=== PATIENT | male | born 1965 | race Caucasian/White ===

== ENCOUNTER → 2018-04-06 00:06 | Outpatient (CLI) | payer BC, SELFPAY ==
[2018-04-06 11:05] LABS: Anion Gap 11.1 mmol/L (3-11); BUN 20 mg/dL (7-18); CO2 27.9 mmol/L (21.0-32.0); CREATININE 1.02 mg/dL (0.70-1.30); Calcium 9.1 mg/dL (8.5-10.1); Chloride 103 mmol/L (98-107); Cholesterol 165 mg/dL (50-200); Glucose 144 mg/dL (70-100); HDL Cholesterol 57 mg/dL (40-60); LDL CHOLESTEROL 99 mg/dL (<100); Potassium 4.4 mmol/L (3.5-5.1); Sodium 142 mmol/L (136-145); Triglyceride 52 mg/dL (30-150)
[2018-04-07 07:21] LABS: COMMENT (LAB VIEW ONLY) 187.69 mg/dL
[2018-04-07 07:29] LABS: Hemoglobin A1C 8.6 % (4.5-6.2)
[2018-04-08 12:14] LABS: HIV-1/2 Ag & Ab Screen Negative (NEGAT)
[2018-04-08 13:11] LABS: Hepatitis C Ab w Rflx HCV PCR Negative (NEGAT)
== END ==
PROVIDERS: PCP Nurse Practitioner Family; Visit Provider Nurse Practitioner Family
DX: E11.65 Type 2 diabetes mellitus with hyperglycemia (principal); E78.5 Hyperlipidemia, unspecified; Z11.4 Encounter for screening for human immunodeficiency virus [HIV]; E11.9 Type 2 diabetes mellitus without complications; Z11.59 Encounter for screening for other viral diseases
CPT/HCPCS: 36415; 80048; 80061; 83721; 86803; 87389; 82043; 82570; 83036

== ENCOUNTER 2019-06-08 13:45 | Outpatient (REF) | payer BC, SELFPAY ==
[2019-06-08 15:01] LABS: COMMENT (LAB VIEW ONLY) 155.11 mg/dL; Microalb ug/mg Crea 10.8 ug/mg Cr
== END 2019-06-08 14:05 ==
LOC: LBN 13:45
PROVIDERS: PCP Nurse Practitioner Family; Visit Provider Nurse Practitioner Family
DX: E11.9 Type 2 diabetes mellitus without complications (principal)
CPT/HCPCS: 82043; 82570

== ENCOUNTER 2019-07-10 07:08 | Outpatient (CLI) | payer BC, SELFPAY ==
[2019-07-10 08:21] LABS: Anion Gap 11.1 mmol/L (3-11); BUN 16 mg/dL (7-18); CO2 23.9 mmol/L (21.0-32.0); CREATININE 0.93 mg/dL (0.70-1.30); Calcium 9.2 mg/dL (8.5-10.1); Calculated LDL 68 mg/dL; Chloride 105 mmol/L (98-107); Cholesterol 131 mg/dL (50-200); Glucose 147 mg/dL (70-100); HDL Cholesterol 54 mg/dL (40-60); Potassium 4.6 mmol/L (3.5-5.1); Sodium 140 mmol/L (136-145); Triglyceride 45 mg/dL (30-150)
== END 2019-07-10 07:28 ==
PROVIDERS: PCP Nurse Practitioner Family; Visit Provider Nurse Practitioner Family
DX: E78.5 Hyperlipidemia, unspecified (principal); E11.65 Type 2 diabetes mellitus with hyperglycemia
CPT/HCPCS: 36415; 80048; 80061

== ENCOUNTER 2019-09-06 21:45 | Emergency (ER) | payer BC, SELFPAY ==
[2019-09-06 21:48] VITALS: BP 143/79; PULSE 87; RESP 20; TEMP 36.4; O2SAT 96
--- NOTE | 2019-09-06 21:54 | ED.GENADUL_ITS ---
Discharge Plan Disposition Patient Disposition: HOME Condition: Stable Discharge Details Chief Complaint: RespSymp Clinical Impression: Sinusitis Primary Care Provider: Tori Good ED Provider: Diomedes Rocha Home Meds and New Rx's Prescriptions: New benzonatate [Tessalon Perles] 100 mg capsule 200 mg PO TID Qty: 20 RF: 0 doxycycline hyclate 100 mg tablet 100 mg PO BID Qty: 14 RF: 0 Continued atorvastatin 10 mg tablet 10 mg PO DAILY RF: 0 (DME) pen needle, diabetic [Pen Needle] 31 gauge x 5/16 needle See Dose Instructions .ROUTE .MEDSUPPLY Qty: 100 RF: 3 metformin 1,000 mg tablet 1,000 mg PO BID Qty: 180 RF: 3 Januvia 100 mg tablet 100 mg PO DAILY Qty: 90 RF: 3 glimepiride 4 mg tablet 8 mg PO DAILY Qty: 180 RF: 3 Victoza 3-Aaron 0.6 mg/0.1 mL (18 mg/3 mL) pen injector 1.8 mg subcut DAILY Qty: 9 RF: 3 (DME) blood-glucose meter [FreeStyle Lite Meter] 1 EACH kit 1 ea Miscellaneous DAILY Qty: 1 RF: 0 (DME) lancets [FreeStyle Lancets] 1 EACH misc 1 ea Miscellaneous DAILY Qty: 100 RF: 3 (DME) FreeStyle Lite Strips 1 EACH strip 1 ea Miscellaneous DAILY Qty: 100 RF: 3 aspirin [Aspir-81] 81 MG tablet,delayed release (DR/EC) 81 mg PO DAILY RF: 0 Varicella-Zoster Ge/As01b/Pf [Shingrix Vial Kit] 50 MCG INJ 50 mcg IM ONCE Qty: 1 RF: 1 Discharge Instructions Instructions: Sinusitis (ED) Additional Instructions: if you are not better within a week see your primary care provider if you feel more ill, have high fevers or worsening shortness of breath return to the emergency department for evaluation Medical Decision Making 54 yo male with hx of DM comes in with over a week of cough intermittently productive of clear phlegm and sinus pressure. Denies fevers, chills, recent travel, smoking or drug use. He is speaking in full sentences on exam and has clear lung sounds throughout, no jvd or peripheral edema, does have clear rhinorrhea. LIkely viral uri vs sinusitis, will obtain xray to eval for infiltrate. No fevers and appears well so doubt sepsis. No chest pain or pressure, no leg swelling or calf pain and no hypoxia or tachycardia so doubt entities such as acs, chf or Pe and symptoms sound more infecitous in etiology. xray negative on my read, remains stable. Given length of time will start abx for possible bacterial sinusitis and early pna. ADvised f/u with pcp and return precautions given Differential Diagnosis Differential Diagnosis: sinusitis, uri, pna Imaging Data Radiologic Study: Attestation: I personally reviewed and interpreted this imaging study as follows: Imaging: X-Ray My impression: no acute findings HPI General Mode of arrival: ambulatory . Date/Time Provider Initiated Documentation: 09/06/19 21:45 . Limitations to Documentation: no limitations . Information obtained by: patient . History of Present Illness 54 year old M presents to the emergency department with the chief complaint of cough, described as moderate, and it has been constant. No relieving factors improve symptom(s), No exacerbating factors reported . Related Data Home Medications Medication Instructions Recorded Confirmed blood-glucose meter [FreeStyle #1 kit 09/15/14 09/06/19 Lite Meter] lancets [FreeStyle Lancets] #100 ea 09/15/14 09/06/19 FreeStyle Lite Strips #100 strip 04/06/16 09/06/19 aspirin [Aspir-81] 81 mg PO DAILY tab-cap 01/06/18 09/06/19 atorvastatin 10 mg tablet 10 mg PO DAILY 12/04/18 09/06/19 metformin 1,000 mg tablet 1,000 mg PO BID #180 tab-cap 03/06/19 09/06/19 pen needle, diabetic 31 gauge x #100 each 03/06/19 09/06/1901/15 sitagliptin 100 mg tablet 100 mg PO DAILY #90 tab-cap 03/06/19 09/06/19 glimepiride 4 mg tablet 8 mg PO DAILY #180 tab-cap 06/08/19 09/06/19 liraglutide 0.6 mg/0.1 mL (18 mg/3 1.8 mg SUBCUT DAILY #9 ml 06/08/19 09/06/19 mL) subcutaneous pen injector benzonatate [Tessalon Perlkee] 200 mg PO TID #20 cap 09/06/19 doxycycline hyclate 100 mg PO BID #14 tab 09/06/19 Previous Rx's Medication Instructions Recorded metformin 1,000 mg tablet 1,000 mg PO BID #180 tab-cap 03/06/19 pen needle, diabetic 31 gauge x #100 each 03/06/19 5/ sitagliptin 100 mg tablet 100 mg PO DAILY #90 tab-cap 03/06/19 glimepiride 4 mg tablet 8 mg PO DAILY #180 tab-cap 06/08/19 liraglutide 0.6 mg/0.1 mL (18 mg/3 1.8 mg SUBCUT DAILY #9 ml 06/08/19 mL) subcutaneous pen injector benzonatate [Tessalon Perles] 200 mg PO TID #20 cap 09/06/19 doxycycline hyclate 100 mg PO BID #14 tab 09/06/19 Allergies Allergy/AdvReac Type Severity Reaction Status Date / Time Penicillins Allergy Unknown UNKNOWN Verified 09/06/19 21:49 General Stated Complaint: RespSymp HEATHER: 4 Review of Systems All systems reviewed & are unremarkable except as noted in HPI and below Constitutional Constitutional: Denies chills, Denies fever(s) and Denies weakness Eyes Eyes: Denies loss of vision Cardiovascular Cardiovascular: Denies chest pain and Denies dyspnea Respiratory Respiratory: Denies dyspnea Gastrointestinal Gastrointestinal: Denies abdominal pain, Denies nausea and Denies vomiting Musculoskeletal Musculoskeletal: Denies joint swelling Neurologic Neurologic: Denies loss of vision and Denies weakness [facility] Social History Smoking/Tobacco Use Status: Never Alcohol Intake: current Alcohol Intake frequency: holidays/special occasions only Drug use: Never Substance use type: does not use Caregiver/Support person: No Household members: spouse Housing: house Number of Children: 3 Communication Needs: None current occupation: self employed Current gender identity: male What is your relationship status?: Panel score (0-1 are the most socially isolated patients): 1 What type of physical activity do you participate in: walking Frequency: daily Do you feel safe at home: Yes Do you feel safe in your relationship?: Yes Exam Const General: no acute distress Orientation: alert HENMT Head: normal to inspection Ears: external ears normal General nose exam: external nose normal Mouth: moist mucous membranes Eyes General: appearance normal, both eyes and all related structures Neck Neck: normal visual inspection Resp Effort & Inspection: normal respiratory effort and able to speak in complete sentences Cardio Rate: regular rate Skin General skin exam: no rashes or lesions noted Neuro General: alert and oriented x3 Extrem General: normal to inspection Psych Mental Status: mental status grossly normal Course Vital Signs Vital signs: Vital Signs Temperature 36.4 C L 09/06/19 21:48 Pulse 87 09/06/19 21:48 Respiratory Rate 09/06/19 21:48 Blood Pressure 143/79 H 09/06/19 21:48 Pulse Oximetry 96 09/06/19 21:48 Temperature 36.4 C L 09/06/19 21:48 Temperature Source Temporal Artery Scan 09/06/19 21:48 Pulse 87 09/06/19 21:48 Respiratory Rate 09/06/19 21:48 Respiratory Effort Non-Labored 09/06/19 21:50 Respiratory Depth Normal 09/06/19 21:50 Blood Pressure 143/79 H 09/06/19 21:48 Blood Pressure Position Sitting 09/06/19 21:48 Pulse Oximetry 96 09/06/19 21:48 Oxygen Delivery Method Room Air 09/06/19 21:48 Oxygen Flow Rate 0 09/06/19 21:48 Pain Level 8 09/06/19 21:48
--- NOTE | 2019-09-06 22:02 | DI.RAD_ITS ---
EXAM: XR CHEST 2V PA LATERAL INDICATION: cough. COMPARISON: No exams were available for comparison TECHNIQUE: 2D digital imaging was performed. FINDINGS: Heart size is normal. The lungs are clear. No infiltrate or effusion is seen. IMPRESSION: Negative chest x-ray.
[2019-09-06] MEDS: Doxycycline Hyclate 100 MG CAP PO (22:30)
[2019-09-06] MEDS: Benzonatate 200 MG CAP PO (22:30)
--- NOTE | 2019-09-06 22:39 | DI.VRAD_ITS ---
PROCEDURE INFORMATION: Exam: XR Chest, 2 Views Exam date and time: 09/06/2019 10:02 PM Age: 54 years old Clinical indication: Patient HX: Cold symptoms, cough for 3 days TECHNIQUE: Imaging protocol: XR of the chest Views: 2 views. COMPARISON: No relevant prior studies available. FINDINGS: Lungs: Unremarkable. No consolidation. Pleural space: Unremarkable. No pleural effusion. No pneumothorax. Heart/Mediastinum: Unremarkable. No cardiomegaly. Bones/joints: Unremarkable. IMPRESSION: No acute findings. Dictated and Authenticated by: Reuben Beasley MD. Ordering:ROBERT Hercules MD
[2019-09-07 06:10] VITALS: BP 143/79; PULSE 87; RESP 20; TEMP 36.4; O2SAT 96
== END 2019-09-06 22:35 | disposition home or self-care (01) ==
PROVIDERS: Emergency Provider Emergency Medicine; PCP Nurse Practitioner Family
DX: J01.90 Acute sinusitis, unspecified (principal); E11.9 Type 2 diabetes mellitus without complications; Z79.84 Long term (current) use of oral hypoglycemic drugs
CPT/HCPCS: 99283; 71046

== ENCOUNTER 2020-09-30 10:31 | Outpatient (REF) | payer BC, SELFPAY ==
[2020-09-30 14:09] LABS: COMMENT (LAB VIEW ONLY) 124.59 mg/dL
== END 2020-09-30 10:51 ==
LOC: LBN 10:31
PROVIDERS: PCP Nurse Practitioner Family; Visit Provider Nurse Practitioner Family
DX: E11.9 Type 2 diabetes mellitus without complications (principal)
CPT/HCPCS: 82043; 82570

== ENCOUNTER 2020-10-06 03:54 | Outpatient (CLI) | payer BC, SELFPAY ==
[2020-10-06 08:12] LABS: ALT 47 U/L (16-63); AST 12 U/L (15-37); Albumin 4.1 g/dL (3.4-5.0); Alkaline Phosphatase 72 U/L (46-116); Anion Gap 10.5 mmol/L (3-11); BUN 22 mg/dL (7-18); Bilirubin, Total 0.6 mg/dL (0.2-1.0); CO2 25.5 mmol/L (21.0-32.0); CREATININE 1.1 mg/dL (0.70-1.30); Calcium 9.5 mg/dL (8.5-10.1); Calculated LDL 80 mg/dL (<100); Chloride 103 mmol/L (98-107); Cholesterol 142 mg/dL (<200); Glucose 179 mg/dL (74-106); HDL Cholesterol 52 mg/dL (40-60); Potassium 4.9 mmol/L (3.5-5.1); Sodium 139 mmol/L (136-145); Total Protein 7.9 g/dL (6.4-8.2); Triglyceride 53 mg/dL (<150)
== END 2020-10-06 03:55 | disposition home or self-care (01) ==
LOC: LBO 03:54
PROVIDERS: PCP Nurse Practitioner Family; Visit Provider Nurse Practitioner Family
DX: E11.65 Type 2 diabetes mellitus with hyperglycemia (principal)
CPT/HCPCS: 36415; 80053; 80061

== ENCOUNTER 2021-10-13 09:51 | Outpatient (REF) | payer BC, SELFPAY ==
[2021-10-13 17:15] LABS: Microalb ug/mg Crea 36.7 ug/mg Cr
== END 2021-10-13 09:52 | disposition home or self-care (01) ==
LOC: LBN 09:51
PROVIDERS: PCP Nurse Practitioner Family; Visit Provider Nurse Practitioner Family
DX: E11.9 Type 2 diabetes mellitus without complications (principal); Z79.4 Long term (current) use of insulin
CPT/HCPCS: 82043; 82570

== ENCOUNTER 2021-11-28 02:54 | Outpatient (CLI) | payer BC, SELFPAY ==
[2021-11-28 08:55] LABS: ALT 60 U/L (16-63); AST 14 U/L (15-37); Albumin 4.5 g/dL (3.4-5.0); Alkaline Phosphatase 79 U/L (46-116); Anion Gap 10.4 mmol/L (3-11); BUN 14 mg/dL (7-18); Bilirubin, Total 0.6 mg/dL (0.2-1.0); CO2 27.6 mmol/L (21.0-32.0); CREATININE 0.9 mg/dL (0.70-1.30); Calcium 9.5 mg/dL (8.5-10.1); Calculated LDL 99 mg/dL (<100); Chloride 104 mmol/L (98-107); Cholesterol 162 mg/dL (<200); Glucose 166 mg/dL (74-106); HDL Cholesterol 52 mg/dL (40-60); Potassium 4.7 mmol/L (3.5-5.1); Sodium 142 mmol/L (136-145); Total Protein 8.5 g/dL (6.4-8.2); Triglyceride 55 mg/dL (<150)
== END 2021-11-28 02:55 | disposition home or self-care (01) ==
LOC: LBO 02:54
PROVIDERS: PCP Nurse Practitioner Family; Visit Provider Nurse Practitioner Family
DX: E78.5 Hyperlipidemia, unspecified (principal); E11.65 Type 2 diabetes mellitus with hyperglycemia; Z79.4 Long term (current) use of insulin
CPT/HCPCS: 36415; 80053; 80061; 85014; 85018

== ENCOUNTER 2022-10-18 15:46 | Outpatient (REF) | payer BC, SELFPAY ==
[2022-10-18 17:07] LABS: Microalb ug/mg Crea 29.5 ug/mg Cr
== END 2022-10-18 15:47 | disposition home or self-care (01) ==
LOC: LBN 15:46
PROVIDERS: PCP Nurse Practitioner Family; Visit Provider Nurse Practitioner Family
DX: E11.9 Type 2 diabetes mellitus without complications (principal); Z79.4 Long term (current) use of insulin
CPT/HCPCS: 82043; 82570

== ENCOUNTER 2023-01-22 02:49 | Outpatient (CLI) | payer BC, SELFPAY ==
[2023-01-22 12:42] LABS: Hemoglobin A1C 7.8 % (<5.7)
[2023-01-22 12:48] LABS: Abs Immature Grans 0.04 10^3/uL (0.0-0.06); HCT 47.5 % (40.0-50.0); HGB 15.1 g/dL (13.5-17.5); MCH 29.8 pg (27.0-33.0); MCHC 31.8 % (32.0-36.0); MCV 94 fL (80-95); MPV 9.2 fL (8.0-11.0); RBC 5.07 10^6/uL (4.36-5.78); RDW 13.2 % (11.8-14.1); RDW-SD 44.9 fL; WBC 11.43 10^3/uL (4.4-10.8)
[2023-01-22 12:51] LABS: ALT 77 U/L (16-63); AST 19 U/L (15-37); Albumin 4.1 g/dL (3.4-5.0); Alkaline Phosphatase 69 U/L (46-116); Anion Gap 6.1 mmol/L (3-11); BUN 16 mg/dL (7-18); Bilirubin, Total 0.8 mg/dL (0.2-1.0); CO2 27.9 mmol/L (21.0-32.0); Calcium 9.4 mg/dL (8.5-10.1); Calculated LDL 86 mg/dL (<100); Chloride 104 mmol/L (98-107); Cholesterol 150 mg/dL (<200); Estimated GFR 87.24 (mL/min/1.73m2); Glucose 206 mg/dL (74-106); HDL Cholesterol 56 mg/dL (40-60); Potassium 4.6 mmol/L (3.5-5.1); Sodium 138 mmol/L (136-145); Total Protein 8.3 g/dL (6.4-8.2); Triglyceride 44 mg/dL (<150)
[2023-01-22 13:34] LABS: Absolute Basophil Count 0.34 10^3/uL (0.0-0.2); Absolute Eosinophil Count 0.46 10^3/uL (0.0-0.7); Absolute Monocyte Count 0.57 10^3/uL (0.1-0.8); Absolute Neutrophil Count 6.06 10^3/uL (1.2-6.7); Diff Comment Manual Differential
[2023-01-22 13:35] LABS: Platelet Count 367 10^3/uL (130-400)
[2023-01-22 13:36] LABS: RBC Morphology Normal
== END 2023-01-22 02:50 | disposition home or self-care (01) ==
LOC: LOS 02:49
PROVIDERS: PCP Nurse Practitioner Family; Visit Provider Nurse Practitioner Family
DX: Z51.81 Encounter for therapeutic drug level monitoring (principal); E11.9 Type 2 diabetes mellitus without complications; Z79.4 Long term (current) use of insulin
CPT/HCPCS: 36415; 80053; 80061; 83036; 85025

== ENCOUNTER 2023-03-31 11:55 | Emergency (ER) | payer BC, SELFPAY ==
[2023-03-31 12:17] VITALS: BP 140/81; PULSE 99; RESP 18; TEMP 36.7; O2SAT 98
--- NOTE | 2023-03-31 13:03 | DI.RAD_ITS ---
Exam(s) XR SHOULDER RT COMPLETE 2+V EXAM: XR SHOULDER RT COMPLETE 2+V CLINICAL HISTORY: right shoulder pain. TECHNIQUE: 2D digital imaging was performed. COMPARISON: No exams were available for comparison FINDINGS: Five views. No evidence of acute fracture or dislocation or abnormal soft tissue calcifications. Subacromial spa ce unremarkable. Glenohumeral joint exhibit subtle linear lucency which is probably gas. AC joint u nremarkable. Coracoid process appears intact. IMPRESSION: Subtle linear lucency in the glenoid fossa. Possibly just representing some gas. If there is high s uspicion for fracture here than I would recommend follow-up CT scan. DATA REPOSITORY: RADIATION DOSE DELIVERED:
--- NOTE | 2023-03-31 13:04 | DI.VRAD_ITS ---
PROCEDURE INFORMATION: Exam: XR Right Shoulder Exam date and time: 03/31/2023 12:57 PM Age: 58 years old Clinical indication: Shoulder; Right; Patient HX: Pain - no trauma TECHNIQUE: Imaging protocol: Radiologic exam of the right shoulder. Views: 2 or more views. COMPARISON: CR XR CHEST 2V PA LATERAL 09/06/2019 10:00 PM FINDINGS: Bones/joints: Normal. Soft tissues: Normal. IMPRESSION: No acute findings. Dictated and Authenticated by: Edmond Zavala MD. Ordering:JODI Romero MD
--- NOTE | 2023-03-31 14:52 | W.ED.GENAD ---
Discharge Plan Disposition Patient Disposition: Home Discharge Details Clinical Impression: Sprain of right shoulder Primary Care Provider: Tori Good ED Provider: Jon Patel Home Meds and New Rx's Prescriptions: New diclofenac potassium 50 mg tablet 50 mg PO TID PRN (Reason: pain) Qty: 15 0RF Continued atorvastatin 10 mg tablet 10 mg PO DAILY Qty: 90 3RF Ozempic 2 mg/dose (8 mg/3 mL) pen injector 2 mg subcut QWEEK Qty: 9 3RF glimepiride 4 mg tablet 4 mg PO BID Qty: 180 3RF Rx Instructions: Take 4 mg twice daily, one dose with breakfast and the other with dinner insulin degludec [Tresiba FlexTouch U-100] 100 unit/mL (3 mL) insulin pen 25 unit SC HS Qty: 5 3RF (DME) pen needle, diabetic [Pen Needle] 31 gauge x 5/16 needle See Dose Instructions .ROUTE .MEDSUPPLY Qty: 100 3RF Dose Instruction: To administer insulin 5 times daily. Dispense covered brand. Rx Instructions: To administer Ozempic once weekly. Dispense covered brand. (DME) blood-glucose meter [FreeStyle Lite Meter] 1 EACH kit 1 ea Miscellaneous DAILY Qty: 1 Rx Instructions: 250.00 to maintain A1C less than 7.0 (DME) lancets [FreeStyle Lancets] 1 EACH misc 1 ea Miscellaneous DAILY Qty: 100 Rx Instructions: 250.00 to maintain A1C less than 7.0 (DME) FreeStyle Lite Strips 1 EACH strip 1 ea Miscellaneous DAILY Qty: 100 Rx Instructions: Dx: E11.9 to maintain HbA1C less than 7.0% aspirin [Aspir-81] 81 MG tablet,delayed release (DR/EC) 81 mg PO DAILY metformin 1,000 mg tablet See Rx Instructions PO BID MDD 2500 mg Qty: 225 3RF Rx Instructions: 1000 mg AM and 1500 mg PM PO twice a day; Discharge Instructions Instructions: Shoulder Sprain (ED) Additional Instructions: You may use the provided sling as needed for pain and discomfort. Please perform gentle range of motion activities daily and reduce any heavy lifting or pulling type motions and let the shoulder rest. A referral has been placed for you to follow-up with an orthopedist take medication as prescribed until following up with them. If you have any new or significant worsening of symptoms feel free to return the emergency department for reassessment Referrals: [facility] [Provider Group] (Please call the office in 2 days for arrangement of follow-up appointment) Discharge Data Discharge Date/Time-TO BE ENTERED AT DEPARTURE: 03/31/23 15:12 Medical Decision Making Patient presenting to the emergency department for chief complaint of right shoulder pain. Patient reports that this started 3 years ago when he was throwing some straps on his trailer. It took approximately 1 year for the pain to be fully gone. He was doing good with his shoulder up until the spring when he did the same motion and reinjured it. It had been doing okay but then 1 month ago started having significant pain and discomfort especially with movement. Patient has intermittently taken Aleve but seen little to no relief. Patient denies blunt injury or trauma, fever chills, chest pain shortness of breath or other symptoms physical exam shows significant tenderness with abduction and rotation type movements and has limited range of motion. No crepitus noted, patient does have anterior and posterior tenderness to the proximal humerus distal to pain and discomfort exam is unremarkable. Radiological imaging was performed prior to my assessing the patient and no acute findings are noted. I am concerned for ligamentous type injury and possible need of MRI imaging given nature of pain. Will refer patient to orthopedist for reassessment after prescription of diclofenac was given and sling for comfort. After discussion of diagnosis and plan of care patient has no further needs, questions, or concerns and states clear understanding to return to the emergency department for any worsening symptoms. This documentation was generated using [employer] dictation system, please disregard any oddities of phrase or misspellings. Imaging Data Radiologic Study: Imaging: X-Ray Radiologist's impression: Exam(s) PROCEDURE INFORMATION: Exam: XR Right Shoulder Exam date and time: 03/31/2023 12:57 PM Age: 58 years old Clinical indication: Shoulder; Right; Patient HX: Pain - no trauma TECHNIQUE: Imaging protocol: Radiologic exam of the right shoulder. Views: 2 or more views. COMPARISON: CR XR CHEST 2V PA LATERAL 09/06/2019 10:00 PM FINDINGS: Bones/joints: Normal. Soft tissues: Normal. IMPRESSION: No acute findings. HPI General Mode of arrival: ambulatory. Date/Time Provider Initiated Documentation: 03/31/23 12:08. Limitations to Documentation: no limitations. Information obtained by: patient and RN notes reviewed. History of Present Illness 58 year old M presents to the emergency department with the chief complaint of Right shoulder injury, described as moderate, Quality is described as sharp, and is localized to the right and upper extremity. Patient started experiencing this month(s) (4) and it has been intermittent. Rest improves symptom(s), Movement worsens symptoms . Patient notes no other symptoms.. Patient did receive the following treatments prior to arrival, NSAID Related Data Home Medications Medication Instructions Recorded Confirmed blood-glucose meter (FreeStyle ##1 09/15/14 01/25/23 Lite Meter kit) lancets 28 gauge (FreeStyle #100 ea 09/15/14 01/25/23 Lancets) blood sugar diagnostic (FreeStyle #100 strips 04/06/16 01/25/23 Lite Strips) aspirin 81 mg tablet,delayed 81 mg PO DAILY 01/06/18 03/31/23 release (Aspir-) atorvastatin 10 mg tablet 10 mg PO DAILY #90 tab-caps 02/09/22 03/31/23 metformin 1,000 mg tablet See Rx Instructions PO BID #225 04/13/22 03/31/23 tab-caps glimepiride 4 mg tablet 4 mg PO BID #180 tab-caps 06/22/22 03/31/23 insulin degludec 100 unit/mL (3 25 unit (0.25 mL) subcut HS Dx: 06/22/22 03/31/23 mL) subcutaneous pen (Tresiba E11.9 to maintain HbA1c less than FlexTouch U-100 insulin) 7% #5 SYRGS pen needle, diabetic 31 gauge x #100 ea 07/13/22 01/25/23 5/16 (Pen Needle) semaglutide 2 mg/dose (8 mg/3 mL) 2 mg (0.75 mL) subcut QWEEK #9 mL 01/25/23 03/31/23 subcutaneous pen injector (Ozempic) diclofenac potassium 50 mg tablet 50 mg PO TID PRN pain #15 tabs 03/31/23 Previous Rx's Medication Instructions Recorded atorvastatin 10 mg tablet 10 mg PO DAILY #90 tab-caps 02/09/22 metformin 1,000 mg tablet See Rx Instructions PO BID #225 04/13/22 tab-caps glimepiride 4 mg tablet 4 mg PO BID #180 tab-caps 06/22/22 insulin degludec 100 unit/mL (3 25 unit (0.25 mL) subcut HS Dx: 06/22/22 mL) subcutaneous pen (Tresiba E11.9 to maintain HbA1c less than FlexTouch U-100 insulin) 7% #5 SYRGS pen needle, diabetic 31 gauge x #100 ea 07/13/2201/15 (Pen Needle) semaglutide 2 mg/dose (8 mg/3 mL) 2 mg (0.75 mL) subcut QWEEK #9 mL 01/25/23 subcutaneous pen injector (Ozempic) diclofenac potassium 50 mg tablet 50 mg PO TID PRN pain #15 tabs 03/31/23 Allergies Allergy/AdvReac Type Severity Reaction Status Date / Time Penicillins Allergy Unknown UNKNOWN Verified 03/31/23 12:21 sitagliptin AdvReac Itching Verified 03/31/23 12:21 General Stated Complaint: Orthopedic HEATHER: 4 Review of Systems Narrative: 6 systems reviewed and unremarkable except what is marked below. Musculoskeletal Musculoskeletal: Reports as per HPI, Reports arthralgias, Reports limited range of motion, Denies numbness and Denies tingling Neurologic Neurologic: Denies numbness and Denies tingling PFSH All Active Problems Sprain of right shoulder (Acute) Elevated LFTs (Acute) Age-related nuclear cataract, bilateral (Acute) Microalbuminuria due to type 2 diabetes mellitus (Acute) Obesity (Chronic) Type 2 diabetes mellitus, with long-term current use of insulin (Acute) Learning disability (Acute) Candidate for statin therapy due to risk of future cardiovascular event (Chronic 01/31/16) Medical History Color vision deficiency (1964) Surgical History History of appendectomy Family History Mother Diabetes Father Diabetes Heart disease Grandmother Diabetes Social History Smoking/Tobacco Use Status: Never Smoking risk assessment performed?: Yes Alcohol Intake: current Alcohol Intake frequency: holidays/special occasions only Drug use: Never Substance use type: does not use Adopted: No Caregiver/Support person: No Foster care: No Household members: spouse Housing: house Number of Children: 3 number of grandchildren: 6 Communication Needs: None Education Level: middle school Do you need help understanding health information?: Rarely current occupation: self employed - logging Pets and animals: No Sexually active: Yes Do you think of yourself as: straight/heterosexual Current gender identity: male What is your relationship status?: How often do you talk on the phone with friends or family?: three or more times per week How often do you get together with friends or relatives?: twice per week Do you belong to any clubs or organized social groups?: no Panel score (0-1 are the most socially isolated patients): 2 What type of physical activity do you participate in: walking and other Details: Active with work Duration: < 15 minutes/day Frequency: 5-6 times per week Orquidea/Cheondoism: Sikh Seatbelt use: sometimes Helmet use: Yes Drive intox or ride w/intox escort vehicle driver: No Do you feel safe at home: Yes Do you feel safe in your relationship?: Yes Exam Const General: cooperative, no acute distress and not ill appearing Orientation: alert, awake and oriented x3 HENMT Mouth: moist mucous membranes Resp Effort & Inspection: normal respiratory effort, able to speak in complete sentences and no respiratory distress Cardio Rate: regular rate Rhythm: regular rhythm Pulses: normal peripheral pulses Skin General skin exam: no rashes or lesions noted Neuro General: patient alert, patient awake, patient oriented x3, moves all extremities and no focal motor deficits Sensory Exam: no sensory deficits noted Extrem General: normal exam except as noted Right upper extremity: shoulder/upper arm Details: normal to inspection, tenderness Location: over the subacromial bursa and over the deltoid bursa, axillary nerve sensory function normal and abnormal ROM Details: pain with active ROM Details: in ABduction and in extension and pain with passive ROM Details: with ABduction and with extension; no swelling, no ecchymosis, no crepitus and no deformity Course Vital Signs Vital signs: Vital Signs Temperature 36.7 C 03/31/23 12:17 Pulse 99 H 03/31/23 12:17 Respiratory Rate 18 03/31/23 12:17 Blood Pressure 140/81 03/31/23 12:17 Pulse Oximetry 98 03/31/23 12:17 Temperature 36.7 C 03/31/23 12:17 Temperature Source Skin 03/31/23 12:17 Pulse 99 H 03/31/23 12:17 Respiratory Rate 18 03/31/23 12:17 Respiratory Effort Normal 03/31/23 12:17 Blood Pressure 140/81 03/31/23 12:17 Pulse Oximetry 98 03/31/23 12:17 Oxygen Delivery Method Room Air 03/31/23 12:17 Oxygen Flow Rate 0 03/31/23 12:17 Pain Level 6 03/31/23 12:17
[2023-03-31 15:09] VITALS: PULSE 84; RESP 18; O2SAT 98
== END 2023-03-31 15:12 | disposition home or self-care (01) ==
PROVIDERS: Emergency Provider Nurse Practitioner Family; PCP Nurse Practitioner Family
DX: S43.401A Unspecified sprain of right shoulder joint, initial encounter (principal); X58.XXXA Exposure to other specified factors, initial encounter; E11.9 Type 2 diabetes mellitus without complications; Z79.4 Long term (current) use of insulin
CPT/HCPCS: 99283; 73030

== ENCOUNTER 2023-05-01 01:44 | Outpatient (CLI) | payer BC, SELFPAY ==
[2023-05-01 10:04] LABS: ALT 72 U/L (16-63); AST 21 U/L (15-37); Albumin 4.3 g/dL (3.4-5.0); Alkaline Phosphatase 77 U/L (46-116); Bilirubin, Direct 0.2 mg/dL (0.0-0.2); Bilirubin, Total 0.9 mg/dL (0.2-1.0)
== END 2023-05-01 01:45 | disposition home or self-care (01) ==
LOC: LBO 01:44
PROVIDERS: PCP Nurse Practitioner Family; Referring Provider Nurse Practitioner Family; Visit Provider Nurse Practitioner Family
DX: R79.89 Other specified abnormal findings of blood chemistry (principal); E11.9 Type 2 diabetes mellitus without complications; Z79.4 Long term (current) use of insulin
CPT/HCPCS: 36415; 80076

== ENCOUNTER 2024-10-21 01:51 | Outpatient (CLI) | payer BC, SELFPAY ==
--- NOTE | 2024-10-21 06:30 | DI.MRI_ITS ---
Exam(s) MR ABDOMEN WO/W EXAM: MR ABDOMEN WO/W CLINICAL HISTORY: Dilated common bile duct,? renal abnormality vs artifact, f/u abnl us TECHNIQUE: Multiplanar multisequence MRI of the Abdomen was performed. CONTRAST MATERIAL: IV Contrast: 20 mL of Dotarem contrast administered. COMPARISON: US US ABDOMEN from 10/31/2023 FINDINGS: Lung bases: Unremarkable. Liver: There is diffuse fatty infiltration of the liver. No hepatic masses present. Pancreas: There is no evidence of a pancreatic mass. No peripancreatic fluid collections are seen. Gallbladder and Bile Ducts: There is no evidence of cholelithiasis. There is no intrahepatic or extr ahepatic biliary ductal dilatation. The common duct measures 5 mm. Adrenals: Unremarkable. Kidneys: Unremarkable. There is no evidence of a renal mass. The kidneys are normal and symmetric in size. No significant renal cortical atrophy is seen. Spleen: Unremarkable. Bowel: There is no evidence of bowel obstruction or bowel wall thickening. The stomach is incomplete ly distended limiting evaluation. Aorta: Unremarkable. No evidence of aneurysm. Soft Tissues: Unremarkable. Bone: Unremarkable. Lymph Nodes: Unremarkable. IMPRESSION: 1. Fatty infiltration of the liver. 2. No biliary ductal dilatation. 3. Normal appearance of the kidneys. DATA REPOSITORY:
[2024-10-21] MEDS: Gadoterate meglumine 20 ML VIAL IVP (08:57)
[2024-10-21] MEDS: Normal Saline - Diluent 50 ML VIAL IJ (08:58)
== END 2024-10-21 02:11 ==
LOC: DI 01:51
PROVIDERS: PCP Family Medicine; Visit Provider Family Medicine
DX: K76.0 Fatty (change of) liver, not elsewhere classified (principal)
CPT/HCPCS: 74183

== ENCOUNTER 2024-12-17 01:09 | Outpatient (CLI) | payer BC, SELFPAY ==
[2024-12-17 08:45] LABS: CREATININE 1.4 mg/dL (0.70-1.30); Estimated GFR 57.54 (mL/min/1.73m2)
== END 2024-12-17 01:10 | disposition home or self-care (01) ==
LOC: LBO 01:09
PROVIDERS: PCP Family Medicine; Visit Provider Family Medicine
DX: E11.65 Type 2 diabetes mellitus with hyperglycemia (principal); Z79.4 Long term (current) use of insulin
CPT/HCPCS: 36415; 82565